=== PATIENT | female | born 1965 | race Caucasian/White ===

== ENCOUNTER 2021-03-23 07:30 | Outpatient (CLI) | payer OTHER | END 2021-03-23 07:31 | disposition home or self-care (01) | LOC: CSHCT 07:30 | PROVIDERS: ATTEND Physician Assistant Medical | DX: R10.30 Lower abdominal pain, unspecified (principal); K62.89 Other specified diseases of anus and rectum; K76.0 Fatty (change of) liver, not elsewhere classified; K57.90 Diverticulosis of intestine, part unspecified, without perforation or abscess without bleeding; K80.20 Calculus of gallbladder without cholecystitis without obstruction | CPT/HCPCS: 74177 ==